=== PATIENT | female | born 1995 | race Caucasian/White ===

== ENCOUNTER 2016-10-05 14:35 | Emergency (ER) | payer OTHER ==
[~2016-10-05] VITALS: Ht 167.6 cm; Wt 60.4 kg
[2016-10-05 14:50] VITALS: TEMP 36.3; Ht 167.6 cm; Wt 60.4 kg
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
--- NOTE | 2016-10-05 15:32 | DIAGNOSTIC IMAGING REPORT ---
HEAD CT NONCONTRAST CT DOSE: 537.48 mGy.cm HISTORY: Trauma head injury, vomiting TECHNIQUE: Multiaxial CT images of the head were performed without the use of intravenous contrast. Comparison: None. Findings: The paranasal sinuses and mastoid air cells are clear. The calvarium and skull base are intact. The ventricles and sulci are within normal limits. There is no mass, hematoma, midline shift, or acute infarct. Impression: No acute intracranial abnormality. Electronically signed by: Denny Hinson M.D. 10/05/2016 3:31 PM Dictated Date/Time: 10/05/2016 3:30 PM
[2016-10-05] MEDS ORDERED: BCPILLS PO (15:36)
[2016-10-05 16:16] VITALS: BP 124/87; PULSE 78; O2SAT 98
== END 2016-10-05 16:17 | disposition home or self-care (01) ==
LOC: C.EDB 14:40 → C.EDD 16:17
DX: S09.90XA Unspecified injury of head, initial encounter (principal); W50.0XXA Accidental hit or strike by another person, initial encounter; Z79.3 Long term (current) use of hormonal contraceptives